=== PATIENT | female | born 1975 | race Hispanic/Latino ===

== ENCOUNTER 2025-02-27 11:54 | Emergency (ER) | payer SELFPAY ==
[2025-02-27] MEDS: FAMOTIDINE 20 MG/2 ML VIAL IV STA (12:45)
[2025-02-27] MEDS: ONDANSETRON HCL INJ 2MG/ML 2ML 2 MG/ML VIAL IV STA (12:45)
[2025-02-27] MEDS: KETOROLAC TROMETHAMINE 30 MG/ML VIAL IV STA (12:45)
[2025-02-27] MEDS: SODIUM CHLORIDE 0.9% 1000ML 1,000 ML IV ONE (12:46)
[2025-02-27] MEDS ORDERED: PEPCID20 MG PO (14:06)
[2025-02-27] MEDS ORDERED: ONDANSETRON ODT4 MG PO (14:07)
[2025-02-27 14:13] VITALS: PULSE 68; RESP 20; TEMP 98; O2SAT 98
== END 2025-02-27 14:30 | disposition home or self-care (01) ==
LOC: FSED 11:59
DX: R53.1 Weakness (principal); K29.70 Gastritis, unspecified, without bleeding; I70.0 Atherosclerosis of aorta; R10.13 Epigastric pain; R11.0 Nausea; R94.31 Abnormal electrocardiogram [ECG] [EKG]
CPT/HCPCS: 74176; 80053; 80307; 81003; 81025; 84484; 85025; 93005; 99283; J1885; J2405; J7030